=== PATIENT | male | born 1955 | race Caucasian/White ===

== ENCOUNTER 2021-05-16 10:57 | Outpatient (REF) | payer OTHER, SELFPAY ==
--- NOTE | ~2021-05-16 | XR_ITS ---
EXAMINATION: XR CHEST CLINICAL INFORMATION: Cough COMPARISON: None TECHNIQUE: 2 views of the chest were obtained. FINDINGS: The cardiac and mediastinal contours are normal. The lung volumes are low. The There are increased central or perihilar interstitial markings, left greater than right. Findings are suggestive of atypical interstitial pneumonia. Differential would include interstitial lung disease. The lungs are otherwise clear. There is no pleural effusion or pneumothorax. There are degenerative changes of the spine. There may be an old right clavicle fracture. XR/XR chest 2V IMPRESSION: Low lung volumes and increased central interstitial markings suggestive of an atypical interstitial pneumonia such as viral pneumonia or mycoplasma pneumonia or in the right clinical setting PCP. Differential would include interstitial lung disease. Chest x-ray follow-up recommended.
== END 2021-05-16 10:58 | disposition home or self-care (01) ==
LOC: HO.XRAY 10:57
PROVIDERS: Visit Provider Family Medicine
DX: R05.9 Cough, unspecified (principal)
CPT/HCPCS: 71046